=== PATIENT | male | born 1990 | race Caucasian/White ===

== ENCOUNTER 2017-06-24 11:55 | Inpatient (IN) | payer OTHER ==
[2017-06-24 12:30] VITALS: BMI 29.0
--- NOTE | 2017-06-24 14:03 | HP ---
COWS - Scale Resting Pulse: 0= [place] 80 or Below Sweatin=Flushed/Facial Moisture Restless Observation: 3= Extraneous Movement Pupil Size: 1= Pupils >than Normal Bone or Joint Aches: 2= Severe Diffuse Aches Runny Nose/ Eye Tearin= Runny Nose/Eyes GI Upset > 30mins: 3= Vomiting/Diarrhea Tremor Observation: 2= Slight Tremor Visible Yawning Observation: 2= >3x During Session Anxiety or Irritability: 2=Irritable/Anxious Goose Flesh Skin: 0=Smooth Skin COWS Score: 19 CIWA Score - CIWA Score Nausea/Vomitin Muscle Tremors: 3 Anxiety: 3 Agitation: 3 Paroxysmal Sweats: 2 Orientation: 0-Oriented Tacttile Disturbances: 2-Mild Itch/Numbness/Burn Auditory Disturbances: 2-Mild Harshness/Frighten Visual Disturbances: 2-Mild Sensitivity Headache: 2-Mild CIWA-Ar Total Score: 22 Admission ROS BHS - HPI Chief Complaint: I NEED HELP TO STOP USING HEROIN,CACOAINE,XANAX,KLONOPIN Allergies/Adverse Reactions: Allergies Allergy/AdvReac Type Severity Reaction Status Date / Time No Known Allergies Allergy Verified 06/24/17 13:56 History of Present Illness: THIS 24 YEARS OLD MALE WITH HEROIN,COCAINE,KLONOPIN DEPENDENCE,SEEKING HELP FOR DETOX, LAST TREATMENT [facility] IN 04/10 NICOTINE DEPENDENCE BIPOLAR DISORDER WITH DEPRESSION ADHD LONGEST PERIOD OF SOBRIETY 4 MONTHS Exam Limitations: No Limitations - Ebola screening Have you traveled outside of the country in the last 21 days: No Have you had contact with anyone from an Ebola affected area: No Have you been sick,other than usual withdrawal symptoms: No Do you have a fever: No - Review of Systems Constitutional: Loss of Appetite, Malaise, Night Sweats, Changes in sleep, Weakness EENT: reports: Tearing, Nose Congestion Respiratory: reports: No Symptoms reported Cardiac: reports: Palpitations GI: reports: Diarrhea, Nausea, Poor Appetite, Vomiting, Abdominal cramping : reports: No Symptoms Reported Musculoskeletal: reports: Back Pain, Joint Pain, Joint Stiffness Integumentary: reports: Dryness Neuro: reports: Headache, Tremors Endocrine: reports: No Symptoms Reported Hematology: reports: No Symptoms Reported Psychiatric: reports: No Sypmtoms Reported, Judgement Intact, Orientated x3 ( BIPOLAR DISORDER AND ADHD), other Patient History - Patient Medical History Hx Anemia: No Hx Asthma: No Hx Chronic Obstructive Pulmonary Disease (COPD): No Hx Cancer: No Hx Cardiac Disorders: No Hx Congestive Heart Failure: No Hx Hypertension: No Hx Hypercholesterolemia: No Hx Pacemaker: No Hx Seizures: No Hx Dementia: No Hx Diabetes: No Hx Gastrointestinal Disorders: No Hx Liver Disease: No Hx Genitourinary Disorders: No Hx Sexually Transmitted Disorders: Yes (HISTORY OF GENITAL HERPES) Hx Renal Disease (ESRD): No Hx Thyroid Disease: No Hx Human Immunodeficiency Virus (HIV): No (LAST 06/10) Hx Hepatitis C: No Hx Depression: Yes Hx Suicide Attempt: No Hx Bipolar Disorder: Yes Hx Schizophrenia: No Other Medical History: BIPOLAR DISORDER,NO SUIDAL,NO HOMICIDAL - Patient Surgical History Past Surgical History: No - PPD History Previous Implant?: Yes Documented Results: Negative w/o proof Implanted On Prior [facility] Admission?: No PPD to be Administered?: Yes - Smoking Cessation Smoking history: Current every day smoker Have you smoked in the past 12 months: Yes Aproximately how many cigarettes per day: 20 Cigars Per Day: 0 Hx Chewing Tobacco Use: No Initiated information on smoking cessation: Yes 'Breaking Loose' booklet given: 06/24/17 - Substance & Tx. History Hx Alcohol Use: No Hx Substance Use: Yes Substance Use Type: Cocaine, Opiates, Tranquilizers Hx Substance Use Treatment: Yes (LAST [facility] 04/10) - Substances Abused Heroin Route: Inhalation Frequency: Daily Amount used: 10 bags Age of first use: 24 Date of Last Use: 06/24/17 Cocaine Route: Inhalation Frequency: 3-6 times per week Amount used: $150 Age of first use: 23 Date of Last Use: 06/21/17 Klonopin Route: Oral Frequency: Daily Amount used: 6-8 mg. Age of first use: 26 Date of Last Use: 06/24/17 Phenobarbital Route: Oral Frequency: Daily Amount used: 3 tabs. (30 mg.) Age of first use: 26 Date of Last Use: 06/24/17 Family Disease History - Family Disease History Family History: Denies Admission Physical Exam BHS - Vital Signs Vital Signs: Vital Signs - 24 hr 06/24/17 12:28 Temperature 98.8 F Pulse Rate 75 Respiratory 18 Rate Blood Pressure 115/60 - Physical General Appearance: Yes: Moderate Distress, Tremorous, Irritable, Sweating, Anxious HEENTM: Yes: Hearing grossly Normal, Normal ENT Inspection, DIO, Pharynx Normal Respiratory: Yes: Lungs Clear, Normal Breath Sounds, No Respiratory Distress Neck: Yes: Within Normal Limits Breast: Yes: Within Normal Limits Cardiology: Yes: Within Normal Limits, Regular Rhythm, Regular Rate, S1, S2 Abdominal: Yes: Within Normal Limits, Normal Bowel Sounds, Non Tender, Soft Genitourinary: Yes: Within Normal Limits Back: Yes: Muscle Spasm, Vertebral Tenderness Musculoskeletal: Yes: Within Normal Limits, full range of Motion, Back pain Extremities: Yes: Normal Inspection, Tremors Neurological: Yes: Within Normal Limits, engineer fishing vessel II-XII NML intact, Fully Oriented, Alert, Motor Strength 5/5 Integumentary: Yes: Dry Lymphatic: Yes: Within Normal Limits - Diagnostic (1) Opioid dependence with withdrawal Current Visit: Yes Status: Acute (2) Cocaine dependence Current Visit: Yes Status: Acute (3) Uncomplicated sedative, hypnotic or anxiolytic withdrawal Current Visit: Yes Status: Acute (4) ADHD Current Visit: Yes Status: Acute (5) Bipolar disorder Current Visit: Yes Status: Acute (6) Depression Current Visit: Yes Status: Acute (7) Nicotine dependence Current Visit: Yes Status: Acute (8) History of herpes genitalis Current Visit: Yes Status: Acute Cleared for Admission [facility] - Detox or Rehab [facility] Level of Care: Medically Managed Detox Regimen/Protocol: Methadone [facility] Breath Alcohol Content Breath Alcohol Content: 0 Urine Drug Screen - Results Drug Screen Negative: No Urine Drug Screen Results: OPI-Opiates, BAR-Barbiturates
[2017-06-24] MEDS ORDERED: MAGNESIUM CITRATE 300 ML BOTTLE PO PRN (14:19)
[2017-06-24] MEDS ORDERED: MENTHOL/PHENOL 1 EACH UD MM PRN (14:19)
[2017-06-24] MEDS ORDERED: ACETAMINOPHEN 325 MG TABLET (FP) PO PRN (14:19)
[2017-06-24] MEDS ORDERED: P-EPHED 60MG/TRIPROLIDI 2.5MG TABLET PO PRN (14:19)
[2017-06-24] MEDS ORDERED: IBUPROFEN 400 MG TABLET (FP) PO PRN (14:19)
[2017-06-24] MEDS ORDERED: guaiFENesin/D-METHORPHAN HB 10 ML UNIT-DOSE CUPS PO PRN (14:19)
[2017-06-24] MEDS ORDERED: MAG HYDROX/AL HYDROX/SIMETH 30 ML UNIT-DOSE CUP PO PRN (14:19)
[2017-06-24] MEDS ORDERED: NICOTINE 10 MG CARTRIDGE (INHALER) IH PRN (14:19)
[2017-06-24] MEDS ORDERED: MAGNESIUM HYDROX 2400MG/30ML ORAL SUSPENSION 30 ML CUP PO PRN (14:19)
[2017-06-24] MEDS ORDERED: diphenhydrAMINE HCL 50 MG CAPSULE PO PRN (14:19)
[2017-06-24] MEDS ORDERED: hydrOXYzine PAMOATE 50 MG CAPSULE (FP) PO PRN (14:19)
[2017-06-24] MEDS ORDERED: LOPERAMIDE HCL 2 MG CAPSULE PO PRN (14:19)
[2017-06-24] MEDS ORDERED: METHADONE HCL 10 MG TABLET (FOR DETOX USE ONLY) PO ONE ×2 (14:29→23:00)
--- NOTE | 2017-06-24 15:44 | HP ---
COWS - Scale Resting Pulse: 0= [place] 80 or Below Sweatin=Flushed/Facial Moisture Restless Observation: 3= Extraneous Movement Pupil Size: 1= Pupils >than Normal Bone or Joint Aches: 2= Severe Diffuse Aches Runny Nose/ Eye Tearin= Runny Nose/Eyes GI Upset > 30mins: 3= Vomiting/Diarrhea Tremor Observation: 2= Slight Tremor Visible Yawning Observation: 2= >3x During Session Anxiety or Irritability: 2=Irritable/Anxious Goose Flesh Skin: 0=Smooth Skin COWS Score: 19 CIWA Score - CIWA Score Nausea/Vomitin Muscle Tremors: 3 Anxiety: 3 Agitation: 3 Paroxysmal Sweats: 2 Orientation: 0-Oriented Tacttile Disturbances: 2-Mild Itch/Numbness/Burn Auditory Disturbances: 2-Mild Harshness/Frighten Visual Disturbances: 2-Mild Sensitivity Headache: 2-Mild CIWA-Ar Total Score: 22 Admission ROS BHS - HPI Chief Complaint: i need help to stop using heroin,xanax,alcohol Allergies/Adverse Reactions: Allergies Allergy/AdvReac Type Severity Reaction Status Date / Time No Known Allergies Allergy Verified 06/24/17 13:56 History of Present Illness: this 26 years old male with heroin,alcohol,klonopin dependence,seeking detox, - Ebola screening Have you traveled outside of the country in the last 21 days: No Have you had contact with anyone from an Ebola affected area: No Have you been sick,other than usual withdrawal symptoms: No Do you have a fever: No Patient History - Patient Medical History Hx Anemia: No Hx Asthma: No Hx Chronic Obstructive Pulmonary Disease (COPD): No Hx Cancer: No Hx Cardiac Disorders: No Hx Congestive Heart Failure: No Hx Hypertension: No Hx Hypercholesterolemia: No Hx Pacemaker: No Hx Seizures: No Hx Dementia: No Hx Diabetes: No Hx Gastrointestinal Disorders: No Hx Liver Disease: No Hx Genitourinary Disorders: No Hx Sexually Transmitted Disorders: Yes (HISTORY OF GENITAL HERPES) Hx Renal Disease (ESRD): No Hx Thyroid Disease: No Hx Human Immunodeficiency Virus (HIV): No (LAST 06/10) Hx Hepatitis C: No Hx Depression: Yes Hx Suicide Attempt: No Hx Bipolar Disorder: Yes Hx Schizophrenia: No Other Medical History: BIPOLAR DISORDER,NO SUIDAL,NO HOMICIDAL - Patient Surgical History Past Surgical History: No Hx Neurologic Surgery: No Hx Cataract Extraction: No Hx Cardiac Surgery: No Hx Lung Surgery: No Hx Breast Surgery: No Hx Breast Biopsy: No Hx Abdominal Surgery: No Hx Appendectomy: No Hx Cholecystectomy: No Hx Genitourinary Surgery: No Hx Section: No Hx Orthopedic Surgery: Yes Anesthesia Reaction: No - PPD History Previous Implant?: Yes Documented Results: Negative w/o proof Implanted On Prior [facility] Admission?: No - Smoking Cessation Smoking history: Current every day smoker Have you smoked in the past 12 months: Yes Aproximately how many cigarettes per day: 20 Cigars Per Day: 0 Hx Chewing Tobacco Use: No Initiated information on smoking cessation: Yes - Substances Abused Heroin Route: Inhalation Frequency: Daily Amount used: 10 bags Age of first use: 24 Date of Last Use: 06/24/17 Cocaine Route: Inhalation Frequency: 3-6 times per week Amount used: $150 Age of first use: 23 Date of Last Use: 06/21/17 Klonopin Route: Oral Frequency: Daily Amount used: 6-8 mg. Age of first use: 26 Date of Last Use: 06/24/17 Phenobarbital Route: Oral Frequency: Daily Amount used: 3 tabs. (30 mg.) Age of first use: 26 Date of Last Use: 06/24/17 Admission Physical Exam BHS - Vital Signs Vital Signs: Vital Signs - 24 hr 06/24/17 12:28 Temperature 98.8 F Pulse Rate 75 Respiratory 18 Rate Blood Pressure 115/60 - Diagnostic (1) Opioid dependence with withdrawal Current Visit: Yes Status: Acute (2) Cocaine dependence Current Visit: Yes Status: Acute (3) Uncomplicated sedative, hypnotic or anxiolytic withdrawal Current Visit: Yes Status: Acute (4) ADHD Current Visit: Yes Status: Acute (5) Bipolar disorder Current Visit: Yes Status: Acute (6) Depression Current Visit: Yes Status: Acute (7) Nicotine dependence Current Visit: Yes Status: Acute (8) History of herpes genitalis Current Visit: Yes Status: Acute BHS Breath Alcohol Content Breath Alcohol Content: 0 Urine Drug Screen - Results Drug Screen Negative: No Urine Drug Screen Results: OPI-Opiates, BAR-Barbiturates
[2017-06-24] MEDS ORDERED: METHADONE HCL 10 MG TABLET (FOR DETOX USE ONLY) ONE (16:45)
[2017-06-24] MEDS: diazePAM 5 MG TABLET PO PRN ×2 (16:48→22:21)
--- NOTE | 2017-06-24 16:53 | CONSULT ---
[facility] Psychiatric Consult - Data Date of interview: 06/24/17 Admission source: [facility] Identifying data: First admission to [facility] for this 26 y/o male seeking detox treatment on for heroin and cocaine dependence.Patient is ,a father of three,homeless,unemployed and supported on food stamps. Substance Abuse History: Discussed in detail with patient in this interview.Mr Iverson confirms the information contained in this section of [facility] report depicting his substance abuse profile : Smoking Cessation. Smoking history: Current every day smoker. Have you smoked in the past 12 months: Yes. Aproximately how many cigarettes per day: 20. Cigars Per Day: 0. Hx Chewing Tobacco Use: No. Initiated information on smoking cessation: Yes. 'Breaking Loose' booklet given: 06/24/17. - Substance & Tx. History. Hx Alcohol Use: No. Hx Substance Use: Yes. Substance Use Type: Cocaine, Opiates, Tranquilizers. Hx Substance Use Treatment: Yes (LAST [facility] - Substances Abused. Heroin. Route: Inhalation. Frequency: Daily. Amount used: 10 bags. Age of first use: 24. Date of Last Use: 06/24/17. Cocaine. Route: Inhalation. Frequency: 3-6 times per week. Amount used: $ 150. Age of first use: 23. Date of Last Use: 06/21/17. Klonopin. Route: Oral. Frequency: Daily. Amount used: 6-8 mg. Age of first use: 26. Date of Last Use: 06/24/17. Phenobarbital. Route: Oral. Frequency: Daily. Amount used: 3 tabs. (30 mg.). Age of first use: 26. Date of Last Use: 06/24/17 Medical History: History of herpes genitalis. Psychiatric History: Patient reports that he is diagnosed with ADHD.He indicates that he sees a private psychiatrist in [facility] for outpatient follow up.Prescribed adderall 10 mg po bid.No recall of date of last intake.Mr Iverson denies history of psychiatric hospitalizations.No history of suicide attempts. Physical/Sexual Abuse/Trauma History: Patient denies. Additional Comment: Urine Drug Screen Results: OPI-Opiates, BAR- Barbiturates.Noted. Mental Status Exam - Mental Status Exam Alert and Oriented to: Time, Place, Person Cognitive Function: Good Patient Appearance: Well Groomed Mood: Nervous, Anxious Affect: Mood Congruent Patient Behavior: Fatigued, Appropriate, Cooperative Speech Pattern: Clear Voice Loudness: Normal Thought Process: Goal Oriented Thought Disorder: Not Present Hallucinations: Denies Suicidal Ideation: Denies Homicidal Ideation: Denies Insight/Judgement: Poor Sleep: Poorly, Difficulty falling asleep Appetite: Good Muscle strength/Tone: Normal Gait/Station: Normal Psychiatric Findings - Problem List ([place] 1, 2,3) (1) Opioid dependence with withdrawal Current Visit: Yes Status: Acute (2) Cocaine dependence Current Visit: Yes Status: Acute (3) Uncomplicated sedative, hypnotic or anxiolytic withdrawal Current Visit: Yes Status: Acute (4) Nicotine dependence Current Visit: Yes Status: Acute (5) Substance induced mood disorder Current Visit: Yes Status: Acute (6) ADHD Current Visit: Yes Status: Chronic Comment: Self-report. (7) History of herpes genitalis Current Visit: No Status: Chronic (8) Insomnia Current Visit: Yes Status: Acute - Initial Treatment Plan Initial Treatment Plan: Psychoeducation.Detoxification in progress.Ambien 10 mg po hs prn.Patient is made aware of potential for parasomnias.He is in agreement with this careplan.Observation.Psychostimulant medication is placed on hold.Patient is instructed to contact his private psychiatrist for reactivation of ADHD medications.
[2017-06-24] MEDS: NICOTINE 21 MG/24 HOURS TOPICAL PATCH TD SCH (17:51)
[2017-06-24] MEDS: ZOLPIDEM TARTRATE 10 MG TABLET (PARK CARE ONLY) PO PRN (22:21)
[2017-06-24] MEDS: THIAMINE HCL 100 MG TABLET (FP) PO SCH (22:21)
[2017-06-24] MEDS: CYCLOBENZAPRINE HCL 10 MG TABLET (FP) PO PRN (22:21)
[2017-06-24] MEDS: cloNIDine HCL 0.1 MG TABLET PO SCH (22:23)
[2017-06-25] MEDS: diazePAM 5 MG TABLET PO PRN ×3 (05:55→22:11)
[2017-06-25] MEDS: CYCLOBENZAPRINE HCL 10 MG TABLET (FP) PO PRN (05:55)
[2017-06-25] MEDS ORDERED: METHADONE HCL 10 MG TABLET (FOR DETOX USE ONLY) PO ONE (10:00)
[2017-06-25] MEDS: cloNIDine HCL 0.1 MG TABLET PO SCH ×2 (10:11→22:11)
[2017-06-25] MEDS: NICOTINE 21 MG/24 HOURS TOPICAL PATCH TD SCH (10:11)
[2017-06-25] MEDS: PRENATAL VITAMINS W/ FOLIC ACID TABLET (FP) PO SCH (10:11)
[2017-06-25] MEDS: valACYclovir HCL 500 MG TABLET (FP) PO SCH (10:11)
--- NOTE | 2017-06-25 10:22 | PN ---
S CIWA - CIWA Score Nausea/Vomitin-No Nausea/No Vomiting Muscle Tremors: 4-Moderate,w/Arms Extend Anxiety: 4-Mod. Anxious/Guarded Agitation: 4-Moderately Restless Paroxysmal Sweats: 1-Minimal Palms Moist Orientation: 0-Oriented Tacttile Disturbances: 3-Moderate Itch/Numb/Burn Auditory Disturbances: 0-None Visual Disturbances: 0-None Headache: 0-None Present CIWA-Ar Total Score: 16 BHS COWS - Scale Resting Pulse: 0= [place] 80 or Below Sweatin= Chills/Flushing Restless Observation: 3= Extraneous Movement Pupil Size: 2= Moderately Dilated Bone or Joint Aches: 4=Acute Joint/Muscle Pain Runny Nose/ Eye Tearin= Nasal Congestion GI Upset > 30mins: 1= Stomach Cramp Tremor Observation of Outstretched Hands: 2= Slight Tremor Visible Yawning Observation: 1= 1-2x During Session Anxiety or Irritability: 2=Irritable/Anxious Goose Flesh Skin: 0=Smooth Skin COWS Score: 17 S Progress Note (SOAP) Subjective: ANXIETY,SWEATS,TREMORS. Objective: 06/25/17 10:34 Vital Signs Temperature 97.5 F L 06/25/17 10:05 Pulse Rate 62 06/25/17 10:05 Respiratory Rate 18 06/25/17 10:05 Blood Pressure 103/57 06/25/17 10:05 O2 Sat by Pulse Oximetry (%) LAB RESULTS PENDING Assessment: 06/25/17 10:35 WITHDRAWAL SX Plan: CONTINUE DETOX
[2017-06-25 10:31] LABS: MCH 29.5 pg (25.7-33.7); MCHC 33.6 g/dl (32.0-35.9); MEAN CELL VOLUME 87.9 fl (80-96); MEAN PLT VOLUME 8.5 fl (7.5-11.1); PLATELET COUNT 268 K/MM3 (134-434); RDW 13.7 % (11.9-15.9); WHITE BLOOD COUNT 8.2 K/mm3 (4.0-10.0)
[2017-06-25 12:14] LABS: ALK PHOS 81 U/L (45-117); ANION GAP 8 (8-16); BILIRUBIN,TOTAL 0.4 mg/dL (0.2-1.0); CALCIUM 9.4 mg/dL (8.5-10.1); CO2 30 mmol/L (21-32); CREATININE 1.1 mg/dL (0.7-1.3); GLUCOSE,RANDOM 99 mg/dL (74-106); SGOT/AST 26 U/L (15-37); SGPT/ALT 45 U/L (12-78)
--- NOTE | 2017-06-25 14:22 | EKG ---
Test Reason : Blood Pressure : / mmHG Vent. Rate : 075 BPM Atrial Rate : 075 BPM P-R Int : 146 ms QRS Dur : 102 ms QT Int : 368 ms P-R-T Axes : 038 050 045 degrees QTc Int : 410 ms NORMAL SINUS RHYTHM INCOMPLETE RIGHT BUNDLE BRANCH BLOCK BORDERLINE ECG NO PREVIOUS ECGS AVAILABLE REPEAT EKG IF CLINICALLY INDICATED Confirmed by UMER RAY MD ([id number]) on 06/25/2017 2:21:59 PM Referred By: Cipriano Shelton Confirmed By:UMER RAY MD
[2017-06-25 15:20] LABS: HIV 1 & 2 AB NEGATIVE; HIV 1 AGp24 NEGATIVE
[2017-06-25] MEDS: THIAMINE HCL 100 MG TABLET (FP) PO SCH (22:11)
[2017-06-25] MEDS: ZOLPIDEM TARTRATE 10 MG TABLET (PARK CARE ONLY) PO PRN (22:11)
[2017-06-26] MEDS: diazePAM 5 MG TABLET PO PRN ×3 (06:03→22:03)
[2017-06-26] MEDS: cloNIDine HCL 0.1 MG TABLET PO SCH ×2 (09:59→22:03)
[2017-06-26] MEDS: PRENATAL VITAMINS W/ FOLIC ACID TABLET (FP) PO SCH (09:59)
[2017-06-26] MEDS: valACYclovir HCL 500 MG TABLET (FP) PO SCH (09:59)
[2017-06-26] MEDS ORDERED: METHADONE HCL 5 MG TABLET (FOR DETOX USE ONLY) PO ONE (10:00)
[2017-06-26] MEDS: NICOTINE 21 MG/24 HOURS TOPICAL PATCH TD SCH (10:00)
--- NOTE | 2017-06-26 11:29 | PN ---
[facility] CIWA - CIWA Score Nausea/Vomitin-No Nausea/No Vomiting Muscle Tremors: 4-Moderate,w/Arms Extend Anxiety: 4-Mod. Anxious/Guarded Agitation: 4-Moderately Restless Paroxysmal Sweats: 1-Minimal Palms Moist Orientation: 0-Oriented Tacttile Disturbances: 3-Moderate Itch/Numb/Burn Auditory Disturbances: 0-None Visual Disturbances: 0-None Headache: 0-None Present CIWA-Ar Total Score: 16 BHS COWS - Scale Resting Pulse: 0= [place] 80 or Below Sweatin= Chills/Flushing Restless Observation: 3= Extraneous Movement Pupil Size: 2= Moderately Dilated Bone or Joint Aches: 4=Acute Joint/Muscle Pain Runny Nose/ Eye Tearin= Nasal Congestion GI Upset > 30mins: 2= Nausea/Diarrhea Tremor Observation of Outstretched Hands: 2= Slight Tremor Visible Yawning Observation: 2= >3x During Session Anxiety or Irritability: 2=Irritable/Anxious Goose Flesh Skin: 0=Smooth Skin COWS Score: 19 S Progress Note (SOAP) Subjective: ANXIETY,IRRITABILITY,DIARRHEA,TREMORS,CHILLS. Objective: 06/26/17 11:29 Vital Signs Temperature 97.0 F L 06/26/17 09:40 Pulse Rate 61 06/26/17 09:40 Respiratory Rate 18 06/26/17 09:40 Blood Pressure 103/64 06/26/17 09:40 O2 Sat by Pulse Oximetry (%) Laboratory Last Values WBC 8.2 K/mm3 (4.0-10.0) 06/25/17 06:00 RBC 4.48 M/mm3 (4.00-5.60) 06/25/17 06:00 Hgb 13.2 GM/dL (11.7-16.9) 06/25/17 06:00 Hct 39.4 % (35.4-49) 06/25/17 06:00 MCV 87.9 fl (80-96) 06/25/17 06:00 MCH 29.5 pg (25.7-33.7) 06/25/17 06:00 MCHC 33.6 g/dl (32.0-35.9) 06/25/17 06:00 RDW 13.7 % (11.9-15.9) 06/25/17 06:00 Plt Count 268 K/MM3 (134-434) 06/25/17 06:00 MPV 8.5 fl (7.5-11.1) 06/25/17 06:00 Sodium 140 mmol/L (136-145) 06/25/17 06:00 Potassium 4.2 mmol/L (3.5-5.1) 06/25/17 06:00 Chloride 102 mmol/L (98-107) 06/25/17 06:00 Carbon Dioxide 30 mmol/L (21-32) 06/25/17 06:00 Anion Gap 8 (8-16) 06/25/17 06:00 BUN 17 mg/dL (7-18) 06/25/17 06:00 Creatinine 1.1 mg/dL (0.7-1.3) 06/25/17 06:00 Creat Clearance w eGFR > 60 (>60) 06/25/17 06:00 Random Glucose 99 mg/dL (74-106) 06/25/17 06:00 Calcium 9.4 mg/dL (8.5-10.1) 06/25/17 06:00 Total Bilirubin 0.4 mg/dL (0.2-1.0) 06/25/17 06:00 AST 26 U/L (15-37) 06/25/17 06:00 ALT 45 U/L (12-78) 06/25/17 06:00 Alkaline Phosphatase 81 U/L (45-117) 06/25/17 06:00 Total Protein 7.0 g/dl (6.4-8.2) 06/25/17 06:00 Albumin 4.0 g/dl (3.4-5.0) 06/25/17 06:00 RPR Titer Nonreactive (NONREACTIVE) 06/25/17 06:00 Hepatitis C Antibody <0.1 s/co ratio (0.0-0.9) 06/24/17 06:00 HIV 1&2 Antibody Screen Negative 06/24/17 09:50 HIV P24 Antigen Negative 06/24/17 09:50 Assessment: 06/26/17 11:29 WITHDRAWAL SX Plan: CONTINUE DETOX IMODIUM PRN
[2017-06-26] MEDS: NICOTINE POLACRILEX 4 MG GUM BUC PRN (12:43)
[2017-06-26 14:48] LABS: URINE APPEARANCE CLEAR; URINE BILIRUBIN NEGATIVE (NEGATIVE); URINE BLOOD NEGATIVE (NEGATIVE); URINE COLOR STRAW; URINE GLUCOSE (UA) NEGATIVE (NEGATIVE); URINE KETONE NEGATIVE (NEGATIVE); URINE LEUK ESTERASE NEGATIVE (NEGATIVE); URINE NITRITE NEGATIVE (NEGATIVE); URINE PROTEIN NEGATIVE (NEGATIVE); URINE UROBILINOGEN NEGATIVE mg/dL (0.2-1.0)
[2017-06-26] MEDS: ZOLPIDEM TARTRATE 10 MG TABLET (PARK CARE ONLY) PO PRN (22:03)
[2017-06-26] MEDS: CYCLOBENZAPRINE HCL 10 MG TABLET (FP) PO PRN (22:03)
[2017-06-26] MEDS: THIAMINE HCL 100 MG TABLET (FP) PO SCH (22:03)
[2017-06-27] MEDS: diazePAM 5 MG TABLET PO PRN (05:40)
[2017-06-27] MEDS: CYCLOBENZAPRINE HCL 10 MG TABLET (FP) PO PRN (05:40)
[2017-06-27] MEDS ORDERED: METHADONE HCL 5 MG TABLET (FOR DETOX USE ONLY) PO ONE (10:00)
--- NOTE | 2017-06-27 10:02 | PN ---
BHS Progress Note (SOAP) Subjective: C/O SLIGHT TREMORS, ANXIETY. Objective: 06/27/17 10:01 Vital Signs Temperature 97.5 F L 06/27/17 09:23 Pulse Rate 78 06/27/17 09:23 Respiratory Rate 18 06/27/17 09:23 Blood Pressure 104/58 06/27/17 09:23 O2 Sat by Pulse Oximetry (%) Laboratory Last Values WBC 8.2 K/mm3 (4.0-10.0) 06/25/17 06:00 RBC 4.48 M/mm3 (4.00-5.60) 06/25/17 06:00 Hgb 13.2 GM/dL (11.7-16.9) 06/25/17 06:00 Hct 39.4 % (35.4-49) 06/25/17 06:00 MCV 87.9 fl (80-96) 06/25/17 06:00 MCH 29.5 pg (25.7-33.7) 06/25/17 06:00 MCHC 33.6 g/dl (32.0-35.9) 06/25/17 06:00 RDW 13.7 % (11.9-15.9) 06/25/17 06:00 Plt Count 268 K/MM3 (134-434) 06/25/17 06:00 MPV 8.5 fl (7.5-11.1) 06/25/17 06:00 Sodium 140 mmol/L (136-145) 06/25/17 06:00 Potassium 4.2 mmol/L (3.5-5.1) 06/25/17 06:00 Chloride 102 mmol/L (98-107) 06/25/17 06:00 Carbon Dioxide 30 mmol/L (21-32) 06/25/17 06:00 Anion Gap 8 (8-16) 06/25/17 06:00 BUN 17 mg/dL (7-18) 06/25/17 06:00 Creatinine 1.1 mg/dL (0.7-1.3) 06/25/17 06:00 Creat Clearance w eGFR > 60 (>60) 06/25/17 06:00 Random Glucose 99 mg/dL (74-106) 06/25/17 06:00 Calcium 9.4 mg/dL (8.5-10.1) 06/25/17 06:00 Total Bilirubin 0.4 mg/dL (0.2-1.0) 06/25/17 06:00 AST 26 U/L (15-37) 06/25/17 06:00 ALT 45 U/L (12-78) 06/25/17 06:00 Alkaline Phosphatase 81 U/L (45-117) 06/25/17 06:00 Total Protein 7.0 g/dl (6.4-8.2) 06/25/17 06:00 Albumin 4.0 g/dl (3.4-5.0) 06/25/17 06:00 Urine Color Straw 06/26/17 09:40 Urine Appearance Clear 06/26/17 09:40 Urine pH 7.0 (5.0-8.0) 06/26/17 09:40 Ur Specific [place] 1.015 (1.005-1.025) 06/26/17 09:40 Urine Protein Negative (NEGATIVE) 06/26/17 09:40 Urine Glucose (UA) Negative (NEGATIVE) 06/26/17 09:40 Urine Ketones Negative (NEGATIVE) 06/26/17 09:40 Urine Blood Negative (NEGATIVE) 06/26/17 09:40 Urine Nitrite Negative (NEGATIVE) 06/26/17 09:40 Urine Bilirubin Negative (NEGATIVE) 06/26/17 09:40 Urine Urobilinogen Negative mg/dL (0.2-1.0) 06/26/17 09:40 Ur Leukocyte Esterase Negative (NEGATIVE) 06/26/17 09:40 RPR Titer Nonreactive (NONREACTIVE) 06/25/17 06:00 Hepatitis C Antibody <0.1 s/co ratio (0.0-0.9) 06/24/17 06:00 HIV 1&2 Antibody Screen Negative 06/24/17 09:50 HIV P24 Antigen Negative 06/24/17 09:50 Assessment: 06/27/17 10:01 WITHDRAWAL SX Plan: CONTINUE DETOX
[2017-06-27] MEDS: cloNIDine HCL 0.1 MG TABLET PO SCH ×2 (10:05→22:12)
[2017-06-27] MEDS: PRENATAL VITAMINS W/ FOLIC ACID TABLET (FP) PO SCH (10:05)
[2017-06-27] MEDS: valACYclovir HCL 500 MG TABLET (FP) PO SCH (10:05)
[2017-06-27] MEDS: NICOTINE 21 MG/24 HOURS TOPICAL PATCH TD SCH (10:06)
[2017-06-27] MEDS: NICOTINE POLACRILEX 4 MG GUM BUC PRN (11:18)
[2017-06-27] MEDS: THIAMINE HCL 100 MG TABLET (FP) PO SCH (22:12)
[2017-06-27] MEDS: ZOLPIDEM TARTRATE 10 MG TABLET (PARK CARE ONLY) PO PRN (22:13)
[2017-06-28] MEDS: CYCLOBENZAPRINE HCL 10 MG TABLET (FP) PO PRN (05:50)
[2017-06-28] MEDS ORDERED: METHADONE HCL 10 MG TABLET (FOR DETOX USE ONLY) PO ONE (10:00)
[2017-06-28] MEDS: NICOTINE 21 MG/24 HOURS TOPICAL PATCH TD SCH (10:13)
[2017-06-28] MEDS: PRENATAL VITAMINS W/ FOLIC ACID TABLET (FP) PO SCH (10:13)
[2017-06-28] MEDS: valACYclovir HCL 500 MG TABLET (FP) PO SCH (10:13)
[2017-06-28] MEDS: cloNIDine HCL 0.1 MG TABLET PO SCH ×2 (10:13→22:06)
--- NOTE | 2017-06-28 11:41 | PN ---
BHS Progress Note (SOAP) Subjective: ANXIETY,SWEATS,FATIGUE. Objective: 06/28/17 11:41 Vital Signs Temperature 96.7 F L 06/28/17 10:02 Pulse Rate 85 06/28/17 10:02 Respiratory Rate 16 06/28/17 10:02 Blood Pressure 108/66 06/28/17 10:02 O2 Sat by Pulse Oximetry (%) Laboratory Last Values WBC 8.2 K/mm3 (4.0-10.0) 06/25/17 06:00 RBC 4.48 M/mm3 (4.00-5.60) 06/25/17 06:00 Hgb 13.2 GM/dL (11.7-16.9) 06/25/17 06:00 Hct 39.4 % (35.4-49) 06/25/17 06:00 MCV 87.9 fl (80-96) 06/25/17 06:00 MCH 29.5 pg (25.7-33.7) 06/25/17 06:00 MCHC 33.6 g/dl (32.0-35.9) 06/25/17 06:00 RDW 13.7 % (11.9-15.9) 06/25/17 06:00 Plt Count 268 K/MM3 (134-434) 06/25/17 06:00 MPV 8.5 fl (7.5-11.1) 06/25/17 06:00 Sodium 140 mmol/L (136-145) 06/25/17 06:00 Potassium 4.2 mmol/L (3.5-5.1) 06/25/17 06:00 Chloride 102 mmol/L (98-107) 06/25/17 06:00 Carbon Dioxide 30 mmol/L (21-32) 06/25/17 06:00 Anion Gap 8 (8-16) 06/25/17 06:00 BUN 17 mg/dL (7-18) 06/25/17 06:00 Creatinine 1.1 mg/dL (0.7-1.3) 06/25/17 06:00 Creat Clearance w eGFR > 60 (>60) 06/25/17 06:00 Random Glucose 99 mg/dL (74-106) 06/25/17 06:00 Calcium 9.4 mg/dL (8.5-10.1) 06/25/17 06:00 Total Bilirubin 0.4 mg/dL (0.2-1.0) 06/25/17 06:00 AST 26 U/L (15-37) 06/25/17 06:00 ALT 45 U/L (12-78) 06/25/17 06:00 Alkaline Phosphatase 81 U/L (45-117) 06/25/17 06:00 Total Protein 7.0 g/dl (6.4-8.2) 06/25/17 06:00 Albumin 4.0 g/dl (3.4-5.0) 06/25/17 06:00 Urine Color Straw 06/26/17 09:40 Urine Appearance Clear 06/26/17 09:40 Urine pH 7.0 (5.0-8.0) 06/26/17 09:40 Ur Specific [place] 1.015 (1.005-1.025) 06/26/17 09:40 Urine Protein Negative (NEGATIVE) 06/26/17 09:40 Urine Glucose (UA) Negative (NEGATIVE) 06/26/17 09:40 Urine Ketones Negative (NEGATIVE) 06/26/17 09:40 Urine Blood Negative (NEGATIVE) 06/26/17 09:40 Urine Nitrite Negative (NEGATIVE) 06/26/17 09:40 Urine Bilirubin Negative (NEGATIVE) 06/26/17 09:40 Urine Urobilinogen Negative mg/dL (0.2-1.0) 06/26/17 09:40 Ur Leukocyte Esterase Negative (NEGATIVE) 06/26/17 09:40 RPR Titer Nonreactive (NONREACTIVE) 06/25/17 06:00 Hepatitis C Antibody <0.1 s/co ratio (0.0-0.9) 06/24/17 06:00 HIV 1&2 Antibody Screen Negative 06/24/17 09:50 HIV P24 Antigen Negative 06/24/17 09:50 Assessment: 06/28/17 11:41 WITHDRAWAL SX Plan: CONTINUE DETOX
[2017-06-28] MEDS: THIAMINE HCL 100 MG TABLET (FP) PO SCH (22:06)
[2017-06-28] MEDS: ZOLPIDEM TARTRATE 10 MG TABLET (PARK CARE ONLY) PO PRN (22:06)
[2017-06-29] MEDS ORDERED: METHADONE HCL 5 MG TABLET (FOR DETOX USE ONLY) PO ONE (06:00)
[2017-06-29] MEDS: PRENATAL VITAMINS W/ FOLIC ACID TABLET (FP) PO SCH (10:16)
[2017-06-29] MEDS: valACYclovir HCL 500 MG TABLET (FP) PO SCH (10:16)
[2017-06-29] MEDS: cloNIDine HCL 0.1 MG TABLET PO SCH (10:16)
[2017-06-29] MEDS: NICOTINE 21 MG/24 HOURS TOPICAL PATCH TD SCH (10:17)
[2017-06-29 10:23] VITALS: BP 113/68; PULSE 91; TEMP 98.6
[2017-06-29] MEDS: NICOTINE POLACRILEX 4 MG GUM BUC PRN (11:08)
--- NOTE | 2017-06-30 14:05 | DS ---
[facility] Detox Discharge Summary Admission Date: 06/24/17 Discharge Date: 06/29/17 - History Present History: Cocaine Dependence, Opioid Dependence, Sedative Dependence Additional Comments: PATIENT GOING TO [facility]. PATIENT ADVISED TO FOLLOW-UP THERE FOR AFTERCARE PER DISCHARGE ARRANGEMENT. PATIENT DISCHARGED FROM UNIT IN STABLE MEDICAL CONDITION. Pertinent Past History: Insomnia, ADHD, Bipolar Disorder. - Physical Exam Results Vital Signs: Vital Signs Temperature 98.6 F 06/29/17 10:23 Pulse Rate 91 H 06/29/17 10:23 Respiratory Rate 18 06/29/17 10:23 Blood Pressure 113/68 06/29/17 10:23 O2 Sat by Pulse Oximetry (%) Pertinent Admission Physical Exam Findings: WITHDRAWAL SYMPTOMS. Laboratory Tests 06/24/17 06/24/17 06/25/17 06:00 09:50 06:00 WBC 8.2 RBC 4.48 Hgb 13.2 Hct 39.4 MCV 87.9 MCH 29.5 MCHC 33.6 RDW 13.7 Plt Count 268 MPV 8.5 Sodium Potassium Chloride Carbon Dioxide Anion Gap BUN Creatinine Creat Clearance w eGFR Random Glucose Calcium Total Bilirubin AST ALT Alkaline Phosphatase Total Protein Albumin Urine Color Urine Appearance Urine pH Ur Specific [place] Urine Protein Urine Glucose (UA) Urine Ketones Urine Blood Urine Nitrite Urine Bilirubin Urine Urobilinogen Ur Leukocyte Esterase RPR Titer Hepatitis C Antibody <0.1 HIV 1&2 Antibody Screen Negative HIV P24 Antigen Negative 06/25/17 06/25/17 06/26/17 06:00 06:00 09:40 WBC RBC Hgb Hct MCV MCH MCHC RDW Plt Count MPV Sodium 140 Potassium 4.2 Chloride 102 Carbon Dioxide 30 Anion Gap 8 BUN 17 Creatinine 1.1 Creat Clearance w eGFR > 60 Random Glucose 99 Calcium 9.4 Total Bilirubin 0.4 AST 26 ALT 45 Alkaline Phosphatase 81 Total Protein 7.0 Albumin 4.0 Urine Color Straw Urine Appearance Clear Urine pH 7.0 Ur Specific [place] 1.015 Urine Protein Negative Urine Glucose (UA) Negative Urine Ketones Negative Urine Blood Negative Urine Nitrite Negative Urine Bilirubin Negative Urine Urobilinogen Negative Ur Leukocyte Esterase Negative RPR Titer Nonreactive Hepatitis C Antibody HIV 1&2 Antibody Screen HIV P24 Antigen LABS NOTED. - Treatment Hospital Course: Detox Protocol Followed, Detoxed Safely, Responded well, Discharged Condition Good, Rehab Referral Accepted Patient has Accepted a Rehab Referral to: [facility]. - Medication Discharge Medications: Ambulatory Orders Valacyclovir HCl [Valtrex -] 500 mg PO DAILY 06/24/17 - Diagnosis (1) Insomnia Status: Acute Qualifiers: Insomnia type: unspecified Qualified Code(s): G47.00 - Insomnia, unspecified (2) Nicotine dependence Status: Chronic Qualifiers: Nicotine product type: cigarettes Substance use status: in withdrawal Qualified Code(s): F17.213 - Nicotine dependence, cigarettes, with withdrawal (3) Opioid dependence with withdrawal Status: Acute (4) Substance induced mood disorder Status: Acute (5) Uncomplicated sedative, hypnotic or anxiolytic withdrawal Status: Acute (6) ADHD Status: Chronic Qualifiers: Attention deficit-hyperactivity disorder type: unspecified Qualified Code(s): F90.9 - Attention-deficit hyperactivity disorder, unspecified type (7) History of herpes genitalis Status: Chronic (8) Bipolar disorder Status: Acute Qualifiers: Active/Remission status: remission status unspecified Qualified Code (s): F31.9 - Bipolar disorder, unspecified (9) Depression Status: Acute Qualifiers: Depression Type: unspecified Qualified Code(s): F32.9 - Major depressive disorder, single episode, unspecified (10) Cocaine dependence Status: Acute Qualifiers: Substance use status: uncomplicated Qualified Code(s): F14.20 - Cocaine dependence, uncomplicated - AMA Did Patient Leave Against Medical Advice: No
== END 2017-06-29 12:16 | disposition other institution (70) | DRG 773 ==
LOC: YASAS 11:55 → Y3N 14:17
PROVIDERS: ADMIT Internal Medicine; ATTEND Internal Medicine
PROC: HZ2ZZZZ Detoxification Services for Substance Abuse Treatment (ICD-10-PCS; principal; 2017-06-24)
DX: F11.23 Opioid dependence with withdrawal (principal); F13.230 Sedative, hypnotic or anxiolytic dependence with withdrawal, uncomplicated; F14.20 Cocaine dependence, uncomplicated; F17.213 Nicotine dependence, cigarettes, with withdrawal; F19.24 Other psychoactive substance dependence with psychoactive substance-induced mood disorder; F90.9 Attention-deficit hyperactivity disorder, unspecified type; F31.9 Bipolar disorder, unspecified; F32.9 Major depressive disorder, single episode, unspecified; G47.00 Insomnia, unspecified; Z87.438 Personal history of other diseases of male genital organs
CPT/HCPCS: 36415; 80053; 81003; 85027; 86593; 86803; 87389; 93005; 93010

== ENCOUNTER 2017-06-29 12:43 | Inpatient (IN) | payer OTHER ==
--- NOTE | 2017-06-29 13:53 | HP ---
[facility] Assess/Revision - Admission History Admitted to Rehab from: [facility] Date of Admission to Rehab: 06/29/17 - Vital signs Vital Signs: Vital Signs Period Temp Pulse Resp BP Sys/Figueroa Pulse Ox Last 24 Hr 98.7 F 104 18 113/63 - Findings Detox History & Physical reviewed: Yes Concur with findings: Yes Comments/Additional Findings: FOR REHAB PROTOCOL
[2017-06-29] MEDS ORDERED: MAGNESIUM HYDROX 2400MG/30ML ORAL SUSPENSION 30 ML CUP PO PRN (13:54)
[2017-06-29] MEDS ORDERED: guaiFENesin/D-METHORPHAN HB 10 ML UNIT-DOSE CUPS PO PRN (13:54)
[2017-06-29] MEDS ORDERED: MAG HYDROX/AL HYDROX/SIMETH 30 ML UNIT-DOSE CUP PO PRN (13:54)
[2017-06-29] MEDS ORDERED: LOPERAMIDE HCL 2 MG CAPSULE PO PRN (13:54)
[2017-06-29] MEDS ORDERED: hydrOXYzine PAMOATE 50 MG CAPSULE (FP) PO PRN (13:54)
[2017-06-29] MEDS ORDERED: P-EPHED 60MG/TRIPROLIDI 2.5MG TABLET PO PRN (13:54)
[2017-06-29] MEDS ORDERED: MAGNESIUM CITRATE 300 ML BOTTLE PO PRN (13:54)
[2017-06-29] MEDS ORDERED: MENTHOL/PHENOL 1 EACH UD MM PRN (13:54)
[2017-06-29] MEDS: THIAMINE HCL 100 MG TABLET (FP) PO SCH (21:52)
[2017-06-29] MEDS: diphenhydrAMINE HCL 50 MG CAPSULE PO PRN (21:52)
--- NOTE | 2017-06-30 09:44 | PN ---
BHS Progress Note Note: PATIENT IS ON [employer]BOX[employer] MAINTENANCE 8MGS/2MGS BID,ORDERED
[2017-06-30] MEDS: ACETAMINOPHEN 325 MG TABLET (FP) PO PRN (10:38)
[2017-06-30] MEDS: PRENATAL VITAMINS W/ FOLIC ACID TABLET (FP) PO SCH (10:38)
[2017-06-30] MEDS: valACYclovir HCL 500 MG TABLET (FP) PO SCH (10:38)
[2017-06-30] MEDS: BUPRENORPHINE/NALOXONE 8 MG/2 MG FILM PACKET SL SCH ×2 (10:39→21:33)
[2017-06-30] MEDS: NICOTINE 21 MG/24 HOURS TOPICAL PATCH TD SCH (10:39)
[2017-06-30] MEDS: IBUPROFEN 400 MG TABLET (FP) PO PRN (18:00)
[2017-06-30] MEDS: diphenhydrAMINE HCL 50 MG CAPSULE PO PRN (21:33)
[2017-06-30] MEDS: THIAMINE HCL 100 MG TABLET (FP) PO SCH (21:33)
[2017-07-01] MEDS: diphenhydrAMINE HCL 50 MG CAPSULE PO PRN (01:52)
[2017-07-01] MEDS: IBUPROFEN 400 MG TABLET (FP) PO PRN ×2 (08:19→15:12)
[2017-07-01] MEDS ORDERED: PNEUMOC 13-VAL CONJ-DIP CRM/PF 0.5 ML DISP.SYRIN IM ONE (10:00)
[2017-07-01] MEDS: valACYclovir HCL 500 MG TABLET (FP) PO SCH (10:27)
[2017-07-01] MEDS: PRENATAL VITAMINS W/ FOLIC ACID TABLET (FP) PO SCH (10:27)
[2017-07-01] MEDS: BUPRENORPHINE/NALOXONE 8 MG/2 MG FILM PACKET SL SCH ×2 (10:28→21:34)
[2017-07-01] MEDS: NICOTINE 21 MG/24 HOURS TOPICAL PATCH TD SCH (10:28)
[2017-07-01] MEDS: NICOTINE POLACRILEX 4 MG GUM BUC PRN ×2 (10:28→21:35)
[2017-07-01] MEDS: ACETAMINOPHEN 325 MG TABLET (FP) PO PRN (10:29)
[2017-07-01] MEDS ORDERED: PNEUMOCOCCAL 23 VACCINE 0.5 ML VIAL IM ONE (12:00)
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
[2017-07-01] MEDS: THIAMINE HCL 100 MG TABLET (FP) PO SCH (21:34)
[2017-07-01] MEDS: SUVOREXANT 10 MG TABLET PO SCH (21:34)
[2017-07-02] MEDS: NICOTINE POLACRILEX 4 MG GUM BUC PRN (10:29)
[2017-07-02] MEDS: IBUPROFEN 400 MG TABLET (FP) PO PRN (10:29)
[2017-07-02] MEDS: NICOTINE 21 MG/24 HOURS TOPICAL PATCH TD SCH (10:30)
[2017-07-02] MEDS: valACYclovir HCL 500 MG TABLET (FP) PO SCH (10:31)
[2017-07-02] MEDS: PRENATAL VITAMINS W/ FOLIC ACID TABLET (FP) PO SCH (10:31)
[2017-07-02] MEDS: BUPRENORPHINE/NALOXONE 8 MG/2 MG FILM PACKET SL SCH ×2 (10:31→21:36)
--- NOTE | 2017-07-02 11:50 | PN ---
S Progress Note Note: patient has migraine headache,imitrex 50 mgs po now close monitoring
[2017-07-02] MEDS: SUMAtriptan SUCCINATE 50 MG TABLET PO SCH (12:25)
[2017-07-02] MEDS: SUVOREXANT 10 MG TABLET PO SCH (21:36)
[2017-07-02] MEDS: THIAMINE HCL 100 MG TABLET (FP) PO SCH (21:36)
[2017-07-03 07:22] VITALS: BP 123/67; PULSE 67; TEMP 97.8
[2017-07-03] MEDS: NICOTINE 21 MG/24 HOURS TOPICAL PATCH TD SCH (09:56)
[2017-07-03] MEDS: valACYclovir HCL 500 MG TABLET (FP) PO SCH (09:56)
[2017-07-03] MEDS: PRENATAL VITAMINS W/ FOLIC ACID TABLET (FP) PO SCH (09:56)
[2017-07-03] MEDS: BUPRENORPHINE/NALOXONE 8 MG/2 MG FILM PACKET SL SCH (09:57)
[2017-07-03] MEDS: SUMAtriptan SUCCINATE 50 MG TABLET PO SCH (11:57)
[2017-07-03] MEDS: IBUPROFEN 400 MG TABLET (FP) PO PRN (12:01)
--- NOTE | 2017-07-03 12:52 | PN ---
S Progress Note Note: PATIENT COMPLAINED OF CHEST PAIN ALERT,NOR IN DISTRESS NO SOB HEART NORMAL HEART SOUND,S1S2,REGULAR LUNG CLEAR NO CALF TENDERNESS PAIN RELATED TO MOVEMENT TENDERNESS OVER THE LEFT COSTOCHONDRAL JUNCTION T97.9,P74,R20,BP 134/75 IMPRESSION CHEST PAIN COSTOCHONDRITIST TREATMENT MOTRIN 400 MGS PO Q 6 HRS PRN FOR PAIN CLOSE MONITORIN
--- NOTE | 2017-07-03 12:56 | PN ---
BHS Progress Note Note: ADDENDUM EKG NSR ,NO ACUTE CHANGE
--- NOTE | 2017-07-03 14:50 | EKG ---
Test Reason : Blood Pressure : / mmHG Vent. Rate : 079 BPM Atrial Rate : 079 BPM P-R Int : 150 ms QRS Dur : 104 ms QT Int : 370 ms P-R-T Axes : 043 062 036 degrees QTc Int : 424 ms NORMAL SINUS RHYTHM INCOMPLETE RIGHT BUNDLE BRANCH BLOCK BORDERLINE ECG WHEN COMPARED WITH ECG OF 24-JUN-2017 16:00, NO SIGNIFICANT CHANGE WAS FOUND Confirmed by JEROMY PIERRE MD ([id number]) on 07/03/2017 2:49:34 PM Referred By: Dimitrios GONZALES Confirmed By:JEROMY PIERRE MD
== END 2017-07-03 18:00 | disposition left against medical advice (07) | DRG 770 ==
LOC: YASAS 12:43 → Y5N 12:44
PROVIDERS: ADMIT Psychiatry & Neurology Psychiatry; ATTEND Psychiatry & Neurology Psychiatry
PROC: HZ42ZZZ Group Counseling for Substance Abuse Treatment, Cognitive-Behavioral (ICD-10-PCS; principal; 2017-06-29)
DX: F11.20 Opioid dependence, uncomplicated (principal); F13.20 Sedative, hypnotic or anxiolytic dependence, uncomplicated; F14.20 Cocaine dependence, uncomplicated; F19.24 Other psychoactive substance dependence with psychoactive substance-induced mood disorder; R07.9 Chest pain, unspecified; M94.0 Chondrocostal junction syndrome [Tietze]; G43.909 Migraine, unspecified, not intractable, without status migrainosus; Z87.438 Personal history of other diseases of male genital organs
CPT/HCPCS: 90732; 93005; 93010; G0009

== ENCOUNTER 2017-07-29 09:23 | Inpatient (IN) | payer OTHER ==
[2017-07-29 11:20] VITALS: BMI 32.3
--- NOTE | 2017-07-29 13:21 | HP ---
COWS - Scale Resting Pulse: 0= [place] 80 or Below Sweatin= Chills/Flushing Restless Observation: 1= Difficult to Sit Still Pupil Size: 1= Pupils >than Normal Bone or Joint Aches: 1= Mild Discomfort Runny Nose/ Eye Tearin= Nasal Congestion GI Upset > 30mins: 2= Nausea/Diarrhea Tremor Observation: 1= Tremor [place], Not Seen Yawning Observation: 1= 1-2x During Session Anxiety or Irritability: 2=Irritable/Anxious Goose Flesh Skin: 3=Piloerection COWS Score: 14 Admission ROS [facility] - [facility] Chief Complaint: requesting inpatient detoxification from [place] and cocaine after binge Allergies/Adverse Reactions: Allergies Allergy/AdvReac Type Severity Reaction Status Date / Time No Known Allergies Allergy Verified 07/29/17 11:50 History of Present Illness: 26 yo m w h/o opioid use disorder and cocaine dependence not in treatment, requesting inpatient detoxification with methadone, patient well known to rd [facility], denies recent alcohol or benzodiazepien depndence and does not need to be detoxified from these substances at this time PMHX nicotine dependence, genital herpes on valtrex, depression - no h/o of suicide attempts last used yesterday heroin, sniffing, cociane last used yesterday no idu, has not slept for seeral days. no h/o seiziures no h/o DTS or intubation reported. Exam Limitations: No Limitations - Ebola screening Have you traveled outside of the country in the last 21 days: No (N) Have you had contact with anyone from an Ebola affected area: No Have you been sick,other than usual withdrawal symptoms: No Do you have a fever: No - Review of Systems Constitutional: Chills, Diaphoresis, Weakness, Weight Stable EENT: reports: Nose Congestion Respiratory: reports: No Symptoms reported Cardiac: reports: No Symptoms Reported GI: reports: Nausea, Poor Appetite, Poor Fluid Intake, Indigestion, Abdominal cramping : reports: No Symptoms Reported Musculoskeletal: reports: Back Pain, Joint Pain, Muscle Pain, Muscle Weakness, Neck Pain (withdrawal body aches reported) Integumentary: reports: Flushing, Sweating Neuro: reports: Tremors Endocrine: reports: No Symptoms Reported Hematology: reports: No Symptoms Reported Psychiatric: reports: Judgement Intact, Orientated x3, Anxious, Depressed, other (falling asleep from being up several days on drug binge cocaine and heroin) Other Systems: Reviewed and Negative Patient History - Patient Medical History Hx Anemia: No Hx Asthma: No Hx Chronic Obstructive Pulmonary Disease (COPD): No Hx Cancer: No Hx Cardiac Disorders: No Hx Congestive Heart Failure: No Hx Hypertension: No Hx Hypercholesterolemia: No Hx Pacemaker: No HX Cerebrovascular Accident: No Hx Seizures: No Hx Dementia: No Hx Diabetes: No Hx Gastrointestinal Disorders: No Hx Liver Disease: No Hx Genitourinary Disorders: No Hx Sexually Transmitted Disorders: No Hx Renal Disease (ESRD): No Hx Thyroid Disease: No Hx Human Immunodeficiency Virus (HIV): No (LAST 06/10) Hx Hepatitis C: No Hx Depression: No Hx Suicide Attempt: No Hx Bipolar Disorder: Yes Hx Schizophrenia: No - Patient Surgical History Past Surgical History: No Hx Neurologic Surgery: No Hx Cataract Extraction: No Hx Cardiac Surgery: No Hx Lung Surgery: No Hx Breast Surgery: No Hx Breast Biopsy: No Hx Abdominal Surgery: No Hx Appendectomy: No Hx Cholecystectomy: No Hx Genitourinary Surgery: No Hx Section: No Hx Orthopedic Surgery: No Anesthesia Reaction: No - PPD History Previous Implant?: Yes Documented Results: Negative w/proof Implanted On Prior R Admission?: Yes Date: 06/26/17 Results: 0mm - Reproductive History Patient is a Female of Child Bearing Age (11 -55 yrs old): No Patient : No - Smoking Cessation Smoking history: Current every day smoker Have you smoked in the past 12 months: Yes Aproximately how many cigarettes per day: 3 Cigars Per Day: 0 Hx Chewing Tobacco Use: No Initiated information on smoking cessation: Yes 'Breaking Loose' booklet given: 07/29/17 - Substance & Tx. History Hx Alcohol Use: No Hx Substance Use: Yes Substance Use Type: Cocaine, Heroin, Prescribed, Tranquilizers Hx Substance Use Treatment: Yes ([facility] detox and rehab 1 month ago) - Substances Abused Heroin Route: Inhalation Frequency: Daily Amount used: 4 BAGS Age of first use: 23 Date of Last Use: 07/28/17 Cocaine Route: Inhalation Frequency: 3-6 times per week Amount used: $80 Age of first use: 23 Date of Last Use: 07/28/17 Family Disease History - Family Disease History Family History: Denies Admission Physical Exam BHS - Vital Signs Vital Signs: Vital Signs - 24 hr 07/29/17 11:17 Temperature 97.4 F L Pulse Rate 66 Respiratory 20 Rate Blood Pressure 110/61 - Physical General Appearance: Yes: Nourished, Appropriately Dressed, Disheveled, Mild Distress, Tremorous, Irritable, Sweating, Anxious HEENTM: Yes: Hearing grossly Normal, Normal ENT Inspection, Normocephalic, Pharynx Normal, Nasal Congestion, Rhinorrhea Respiratory: Yes: Within Normal Limits, Chest Non-Tender, Lungs Clear, Normal Breath Sounds, No Respiratory Distress, No Accessory Muscle Use Neck: Yes: Within Normal Limits, No masses,lesions,Nodules, Supple, Trachea in good position Breast: Yes: Breast Exam Deferred Cardiology: Yes: Within Normal Limits, Regular Rhythm, Regular Rate, S1, S2 Abdominal: Yes: Normal Bowel Sounds, Non Tender, Soft, Increased Bowel Sounds, Protuberent, Distended Genitourinary: Yes: Within Normal Limits Back: Yes: Normal Inspection, Muscle Spasm Extremities: Yes: Normal Inspection, Normal Range of Motion, Non-Tender, Tremors 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 intact, Fully Oriented, Motor Strength 5/5, Normal Response, Depressed Affect Integumentary: Yes: Normal Color, Warm, Moist Lymphatic: Yes: Within Normal Limits - Addiitonal Findings: withdrawal sx present - Diagnostic (1) Cocaine dependence Current Visit: Yes Status: Chronic Qualifiers: Substance use status: uncomplicated Qualified Code(s): F14.20 - Cocaine dependence, uncomplicated (2) Depression Current Visit: Yes Status: Suspected Qualifiers: Depression Type: unspecified Qualified Code(s): F32.9 - Major depressive disorder, single episode, unspecified (3) Insomnia Current Visit: Yes Status: Acute Qualifiers: Insomnia type: unspecified Qualified Code(s): G47.00 - Insomnia, unspecified (4) Opioid dependence with withdrawal Current Visit: Yes Status: Chronic (5) Substance induced mood disorder Current Visit: Yes Status: Acute (6) ADHD Current Visit: Yes Status: Chronic Qualifiers: Attention deficit-hyperactivity disorder type: unspecified Qualified Code(s): F90.9 - Attention-deficit hyperactivity disorder, unspecified type Comment: Self-report. (7) History of herpes genitalis Current Visit: Yes Status: Chronic (8) Nicotine dependence Current Visit: Yes Status: Chronic Qualifiers: Nicotine product type: cigarettes Substance use status: in withdrawal Qualified Code(s): F17.213 - Nicotine dependence, cigarettes, with withdrawal Cleared for Admission [facility] - Detox or Rehab [facility] Level of Care: Medically Managed Detox Regimen/Protocol: Librium [facility] Breath Alcohol Content Breath Alcohol Content: 0 Urine Drug Screen - Results Drug Screen Negative: No Urine Drug Screen Results: MARGARITA-Cocaine, OPI-Opiates, BAR-Barbiturates, BZO- Benzodiazepines
[2017-07-29] MEDS ORDERED: guaiFENesin/D-METHORPHAN HB 10 ML UNIT-DOSE CUPS PO PRN (13:24)
[2017-07-29] MEDS ORDERED: ACETAMINOPHEN 325 MG TABLET (FP) PO PRN (13:24)
[2017-07-29] MEDS ORDERED: MENTHOL/PHENOL 1 EACH UD MM PRN (13:24)
[2017-07-29] MEDS ORDERED: NICOTINE POLACRILEX 2 MG GUM BUC PRN (13:24)
[2017-07-29] MEDS ORDERED: MAG HYDROX/AL HYDROX/SIMETH 30 ML UNIT-DOSE CUP PO PRN (13:24)
[2017-07-29] MEDS ORDERED: P-EPHED 60MG/TRIPROLIDI 2.5MG TABLET PO PRN (13:24)
[2017-07-29] MEDS ORDERED: MAGNESIUM HYDROX 2400MG/30ML ORAL SUSPENSION 30 ML CUP PO PRN (13:24)
[2017-07-29] MEDS ORDERED: LOPERAMIDE HCL 2 MG CAPSULE PO PRN (13:24)
[2017-07-29] MEDS ORDERED: MAGNESIUM CITRATE 300 ML BOTTLE PO PRN (13:24)
[2017-07-29] MEDS ORDERED: METHADONE HCL 10 MG TABLET (FOR DETOX USE ONLY) PO ONE ×2 (14:00→23:00)
[2017-07-29] MEDS: valACYclovir HCL 500 MG TABLET (FP) PO SCH (14:55)
[2017-07-29] MEDS: diazePAM 5 MG TABLET PO PRN ×2 (14:56→22:01)
[2017-07-29] MEDS: NICOTINE 14 MG/24 HOURS TOPICAL PATCH TD SCH (14:56)
[2017-07-29 18:40] LABS: URINE APPEARANCE CLEAR; URINE BILIRUBIN NEGATIVE (NEGATIVE); URINE BLOOD 1+ (NEGATIVE); URINE COLOR LTYELLOW; URINE GLUCOSE (UA) NEGATIVE (NEGATIVE); URINE KETONE NEGATIVE (NEGATIVE); URINE LEUK ESTERASE NEGATIVE (NEGATIVE); URINE NITRITE NEGATIVE (NEGATIVE); URINE PROTEIN NEGATIVE (NEGATIVE); URINE UROBILINOGEN NEGATIVE mg/dL (0.2-1.0)
[2017-07-29 18:46] LABS: URINE MUCUS RARE; URINE RBC 1 /hpf (0-3)
[2017-07-29] MEDS: THIAMINE HCL 100 MG TABLET (FP) PO SCH (22:01)
[2017-07-29] MEDS: diphenhydrAMINE HCL 50 MG CAPSULE PO PRN (22:02)
[2017-07-30] MEDS: diazePAM 5 MG TABLET PO PRN ×2 (05:50→22:09)
[2017-07-30] MEDS ORDERED: METHADONE HCL 10 MG TABLET (FOR DETOX USE ONLY) PO ONE (10:00)
[2017-07-30] MEDS: NICOTINE 14 MG/24 HOURS TOPICAL PATCH TD SCH (10:09)
[2017-07-30] MEDS: PRENATAL VITAMINS W/ FOLIC ACID TABLET (FP) PO SCH (10:09)
[2017-07-30] MEDS: valACYclovir HCL 500 MG TABLET (FP) PO SCH (10:09)
[2017-07-30 10:13] LABS: MCH 29.1 pg (25.7-33.7); MCHC 32.7 g/dl (32.0-35.9); MEAN CELL VOLUME 89.2 fl (80-96); PLATELET COUNT 247 K/MM3 (134-434); RDW 13.3 % (11.9-15.9); WHITE BLOOD COUNT 9.1 K/mm3 (4.0-10.0)
--- NOTE | 2017-07-30 10:36 | PN ---
BHS COWS - Scale Resting Pulse: 0= [place] 80 or Below Sweatin= Chills/Flushing Restless Observation: 3= Extraneous Movement Pupil Size: 2= Moderately Dilated Bone or Joint Aches: 4=Acute Joint/Muscle Pain Runny Nose/ Eye Tearin= Nasal Congestion GI Upset > 30mins: 1= Stomach Cramp Tremor Observation of Outstretched Hands: 2= Slight Tremor Visible Yawning Observation: 2= >3x During Session Anxiety or Irritability: 2=Irritable/Anxious Goose Flesh Skin: 0=Smooth Skin COWS Score: 18 BHS Progress Note (SOAP) Subjective: ANXIETY,SWEATS, FATIGUE. Objective: 07/30/17 10:35 Vital Signs Temperature 97.2 F L 07/30/17 08:56 Pulse Rate 70 07/30/17 08:56 Respiratory Rate 18 07/30/17 08:56 Blood Pressure 114/64 07/30/17 08:56 O2 Sat by Pulse Oximetry (%) Laboratory Last Values WBC 9.1 K/mm3 (4.0-10.0) 07/30/17 07:00 RBC 4.52 M/mm3 (4.00-5.60) 07/30/17 07:00 Hgb 13.2 GM/dL (11.7-16.9) 07/30/17 07:00 Hct 40.3 % (35.4-49) 07/30/17 07:00 MCV 89.2 fl (80-96) 07/30/17 07:00 MCH 29.1 pg (25.7-33.7) 07/30/17 07:00 MCHC 32.7 g/dl (32.0-35.9) 07/30/17 07:00 RDW 13.3 % (11.9-15.9) 07/30/17 07:00 Plt Count 247 K/MM3 (134-434) 07/30/17 07:00 MPV 8.0 fl (7.5-11.1) 07/30/17 07:00 Urine Color Ltyellow 07/29/17 15:57 Urine Appearance Clear 07/29/17 15:57 Urine pH 6.0 (5.0-8.0) 07/29/17 15:57 Ur Specific [place] 1.020 (1.005-1.025) 07/29/17 15:57 Urine Protein Negative (NEGATIVE) 07/29/17 15:57 Urine Glucose (UA) Negative (NEGATIVE) 07/29/17 15:57 Urine Ketones Negative (NEGATIVE) 07/29/17 15:57 Urine Blood 1+ (NEGATIVE) H 07/29/17 15:57 Urine Nitrite Negative (NEGATIVE) 07/29/17 15:57 Urine Bilirubin Negative (NEGATIVE) 07/29/17 15:57 Urine Urobilinogen Negative mg/dL (0.2-1.0) 07/29/17 15:57 Ur Leukocyte Esterase Negative (NEGATIVE) 07/29/17 15:57 Urine RBC 1 /hpf (0-3) 07/29/17 15:57 Urine WBC None /hpf (3-5) 07/29/17 15:57 Urine Mucus Rare 07/29/17 15:57 RPR Titer Nonreactive (NONREACTIVE) 07/30/17 07:00 Assessment: 07/30/17 10:36 WITHDRAWAL SX Plan: CONTINUE DETOX
[2017-07-30 11:00] LABS: ALBUMIN 3.3 g/dl (3.4-5.0); ANION GAP 5 (8-16); CALCIUM 8.9 mg/dL (8.5-10.1); CO2 34 mmol/L (21-32); GLUCOSE,RANDOM 96 mg/dL (74-106); SGPT/ALT 29 U/L (12-78)
[2017-07-30 11:03] LABS: ALK PHOS 60 U/L (45-117); BILIRUBIN,TOTAL 0.2 mg/dL (0.2-1.0); CREATININE 1.1 mg/dL (0.7-1.3); SGOT/AST 18 U/L (15-37)
--- NOTE | 2017-07-30 11:10 | CONSULT ---
[facility] Psychiatric Consult - Data Date of interview: 07/30/17 Admission source: [facility] Identifying data: Readmission to [facility] for this 26 y/o male seeking detox treatment on for heroin and cocaine dependence.Patient is ,a father of three,domiciled,unemployed and supported on food stamps. Substance Abuse History: Confirmed by patient in this interview. Smoking Cessation. Smoking history: Current every day smoker. Have you smoked in the past 12 months: Yes. Aproximately how many cigarettes per day: 3. Cigars Per Day: 0. Hx Chewing Tobacco Use: No. Initiated information on smoking cessation : Yes. 'Breaking Loose' booklet given: 07/29/17. - Substance & Tx. History. Hx Alcohol Use: No. Hx Substance Use: Yes. Substance Use Type: Cocaine, Heroin , Prescribed, Tranquilizers. Hx Substance Use Treatment: Yes ([facility] detox and rehab 1 month ago). - Substances Abused. Heroin. Route: Inhalation. Frequency: Daily. Amount used: 4 BAGS. Age of first use: 23. Date of Last Use : 07/28/17. Cocaine. Route: Inhalation. Frequency: 3-6 times per week. Amount used: $80. Age of first use: 23. Date of Last Use: 07/28/17 Medical History: Herpes genitalis. Psychiatric History: Patient is uncooperative and hostile.Denies history of psychiatric problems or medications.This contradicts previous encounters at [facility] indicative of diagnosis of ADHD,treatment with psychostimulants and OPD care by a private psychiatrist in [facility].No history of psychiatric hospitalizations.Mr Iverson denies suicide attempts. Physical/Sexual Abuse/Trauma History: Patient denies. Additional Comment: Urine Drug Screen Results: MARGARITA-Cocaine, OPI-Opiates, BAR- Barbiturates, BZO-Benzodiazepines.Noted. Mental Status Exam - Mental Status Exam Alert and Oriented to: Time, Place, Person Cognitive Function: Good Patient Appearance: Well Groomed Mood: Nervous, Withdrawn, Anxious, Irritable Affect: Mood Congruent Patient Behavior: Fatigued, Uncooperative, Guarded Speech Pattern: Clear Voice Loudness: Normal Thought Process: Goal Oriented Thought Disorder: Not Present Hallucinations: Denies Suicidal Ideation: Denies Homicidal Ideation: Denies Insight/Judgement: Poor Sleep: Well Appetite: Good Muscle strength/Tone: Normal Gait/Station: Normal Psychiatric Findings - Problem List ([place] 1, 2,3) (1) Opioid dependence with withdrawal Current Visit: Yes Status: Acute (2) Cocaine dependence Current Visit: Yes Status: Acute Qualifiers: Substance use status: uncomplicated Qualified Code(s): F14.20 - Cocaine dependence, uncomplicated (3) Nicotine dependence Current Visit: Yes Status: Acute Qualifiers: Nicotine product type: cigarettes Substance use status: in withdrawal Qualified Code(s): F17.213 - Nicotine dependence, cigarettes, with withdrawal (4) Substance induced mood disorder Current Visit: Yes Status: Acute (5) History of herpes genitalis Current Visit: Yes Status: Chronic - Initial Treatment Plan Initial Treatment Plan: Psychoeducation.Detoxification.Observation.
--- NOTE | 2017-07-30 18:33 | EKG ---
Test Reason : Blood Pressure : / mmHG Vent. Rate : 076 BPM Atrial Rate : 076 BPM P-R Int : 152 ms QRS Dur : 108 ms QT Int : 374 ms P-R-T Axes : 050 065 043 degrees QTc Int : 420 ms NORMAL SINUS RHYTHM INCOMPLETE RIGHT BUNDLE BRANCH BLOCK BORDERLINE ECG WHEN COMPARED WITH ECG OF 03-JUL-2017 11:15, NO SIGNIFICANT CHANGE WAS FOUND Confirmed by UMER RAY MD ([id number]) on 07/30/2017 6:32:47 PM Referred By: Confirmed By:UMER RAY MD
[2017-07-30] MEDS: THIAMINE HCL 100 MG TABLET (FP) PO SCH (22:09)
[2017-07-30] MEDS: diphenhydrAMINE HCL 50 MG CAPSULE PO PRN (22:10)
[2017-07-30] MEDS: IBUPROFEN 400 MG TABLET (FP) PO PRN (22:11)
[2017-07-31] MEDS: diazePAM 5 MG TABLET PO PRN ×2 (05:11→10:10)
--- NOTE | 2017-07-31 09:43 | PN ---
BHS COWS - Scale Resting Pulse: 0= [place] 80 or Below Sweatin= Chills/Flushing Restless Observation: 3= Extraneous Movement Pupil Size: 2= Moderately Dilated Bone or Joint Aches: 4=Acute Joint/Muscle Pain Runny Nose/ Eye Tearin= Nasal Congestion GI Upset > 30mins: 0= None Tremor Observation of Outstretched Hands: 1= Tremor [place], Not Seen Yawning Observation: 1= 1-2x During Session Anxiety or Irritability: 2=Irritable/Anxious Goose Flesh Skin: 0=Smooth Skin COWS Score: 15 BHS Progress Note (SOAP) Subjective: ANXIETY,SWEATS,FATIGUE. Objective: 07/31/17 09:43 Vital Signs Temperature 96.4 F L 07/31/17 09:19 Pulse Rate 67 07/31/17 09:19 Respiratory Rate 16 07/31/17 09:19 Blood Pressure 114/67 07/31/17 09:19 O2 Sat by Pulse Oximetry (%) Laboratory Last Values WBC 9.1 K/mm3 (4.0-10.0) 07/30/17 07:00 RBC 4.52 M/mm3 (4.00-5.60) 07/30/17 07:00 Hgb 13.2 GM/dL (11.7-16.9) 07/30/17 07:00 Hct 40.3 % (35.4-49) 07/30/17 07:00 MCV 89.2 fl (80-96) 07/30/17 07:00 MCH 29.1 pg (25.7-33.7) 07/30/17 07:00 MCHC 32.7 g/dl (32.0-35.9) 07/30/17 07:00 RDW 13.3 % (11.9-15.9) 07/30/17 07:00 Plt Count 247 K/MM3 (134-434) 07/30/17 07:00 MPV 8.0 fl (7.5-11.1) 07/30/17 07:00 Sodium 143 mmol/L (136-145) 07/30/17 07:00 Potassium 4.3 mmol/L (3.5-5.1) 07/30/17 07:00 Chloride 104 mmol/L (98-107) 07/30/17 07:00 Carbon Dioxide 34 mmol/L (21-32) H 07/30/17 07:00 Anion Gap 5 (8-16) L 07/30/17 07:00 BUN 13 mg/dL (7-18) D 07/30/17 07:00 Creatinine 1.1 mg/dL (0.7-1.3) 07/30/17 07:00 Creat Clearance w eGFR > 60 (>60) 07/30/17 07:00 Random Glucose 96 mg/dL (74-106) 07/30/17 07:00 Calcium 8.9 mg/dL (8.5-10.1) 07/30/17 07:00 Total Bilirubin 0.2 mg/dL (0.2-1.0) D 07/30/17 07:00 AST 18 U/L (15-37) D 07/30/17 07:00 ALT 29 U/L (12-78) D 07/30/17 07:00 Alkaline Phosphatase 60 U/L (45-117) D 07/30/17 07:00 Total Protein 6.0 g/dl (6.4-8.2) L 07/30/17 07:00 Albumin 3.3 g/dl (3.4-5.0) L 07/30/17 07:00 Urine Color Ltyellow 07/29/17 15:57 Urine Appearance Clear 07/29/17 15:57 Urine pH 6.0 (5.0-8.0) 07/29/17 15:57 Ur Specific [place] 1.020 (1.005-1.025) 07/29/17 15:57 Urine Protein Negative (NEGATIVE) 07/29/17 15:57 Urine Glucose (UA) Negative (NEGATIVE) 07/29/17 15:57 Urine Ketones Negative (NEGATIVE) 07/29/17 15:57 Urine Blood 1+ (NEGATIVE) H 07/29/17 15:57 Urine Nitrite Negative (NEGATIVE) 07/29/17 15:57 Urine Bilirubin Negative (NEGATIVE) 07/29/17 15:57 Urine Urobilinogen Negative mg/dL (0.2-1.0) 07/29/17 15:57 Ur Leukocyte Esterase Negative (NEGATIVE) 07/29/17 15:57 Urine RBC 1 /hpf (0-3) 07/29/17 15:57 Urine WBC None /hpf (3-5) 07/29/17 15:57 Urine Mucus Rare 07/29/17 15:57 RPR Titer Nonreactive (NONREACTIVE) 07/30/17 07:00 Assessment: 07/31/17 09:43 WITHDRAWAL SX Plan: CONTINUE DETOX
[2017-07-31] MEDS ORDERED: METHADONE HCL 5 MG TABLET (FOR DETOX USE ONLY) PO ONE (10:00)
[2017-07-31] MEDS: PRENATAL VITAMINS W/ FOLIC ACID TABLET (FP) PO SCH (10:08)
[2017-07-31] MEDS: valACYclovir HCL 500 MG TABLET (FP) PO SCH (10:08)
[2017-07-31] MEDS: NICOTINE 14 MG/24 HOURS TOPICAL PATCH TD SCH (10:09)
[2017-07-31] MEDS: THIAMINE HCL 100 MG TABLET (FP) PO SCH (22:05)
[2017-07-31] MEDS: diphenhydrAMINE HCL 50 MG CAPSULE PO PRN (22:06)
[2017-08-01] MEDS: diazePAM 5 MG TABLET PO PRN (08:22)
--- NOTE | 2017-08-01 09:49 | PN ---
[facility] Progress Note (SOAP) Subjective: DECREASED ANXIETY, SWEATS,IRRITABILITY. Objective: 08/01/17 09:48 Vital Signs Temperature 98.1 F 08/01/17 09:35 Pulse Rate 87 08/01/17 09:35 Respiratory Rate 18 08/01/17 09:35 Blood Pressure 114/70 08/01/17 09:35 O2 Sat by Pulse Oximetry (%) Laboratory Last Values WBC 9.1 K/mm3 (4.0-10.0) 07/30/17 07:00 RBC 4.52 M/mm3 (4.00-5.60) 07/30/17 07:00 Hgb 13.2 GM/dL (11.7-16.9) 07/30/17 07:00 Hct 40.3 % (35.4-49) 07/30/17 07:00 MCV 89.2 fl (80-96) 07/30/17 07:00 MCH 29.1 pg (25.7-33.7) 07/30/17 07:00 MCHC 32.7 g/dl (32.0-35.9) 07/30/17 07:00 RDW 13.3 % (11.9-15.9) 07/30/17 07:00 Plt Count 247 K/MM3 (134-434) 07/30/17 07:00 MPV 8.0 fl (7.5-11.1) 07/30/17 07:00 Sodium 143 mmol/L (136-145) 07/30/17 07:00 Potassium 4.3 mmol/L (3.5-5.1) 07/30/17 07:00 Chloride 104 mmol/L (98-107) 07/30/17 07:00 Carbon Dioxide 34 mmol/L (21-32) H 07/30/17 07:00 Anion Gap 5 (8-16) L 07/30/17 07:00 BUN 13 mg/dL (7-18) D 07/30/17 07:00 Creatinine 1.1 mg/dL (0.7-1.3) 07/30/17 07:00 Creat Clearance w eGFR > 60 (>60) 07/30/17 07:00 Random Glucose 96 mg/dL (74-106) 07/30/17 07:00 Calcium 8.9 mg/dL (8.5-10.1) 07/30/17 07:00 Total Bilirubin 0.2 mg/dL (0.2-1.0) D 07/30/17 07:00 AST 18 U/L (15-37) D 07/30/17 07:00 ALT 29 U/L (12-78) D 07/30/17 07:00 Alkaline Phosphatase 60 U/L (45-117) D 07/30/17 07:00 Total Protein 6.0 g/dl (6.4-8.2) L 07/30/17 07:00 Albumin 3.3 g/dl (3.4-5.0) L 07/30/17 07:00 Urine Color Ltyellow 07/29/17 15:57 Urine Appearance Clear 07/29/17 15:57 Urine pH 6.0 (5.0-8.0) 07/29/17 15:57 Ur Specific [place] 1.020 (1.005-1.025) 07/29/17 15:57 Urine Protein Negative (NEGATIVE) 07/29/17 15:57 Urine Glucose (UA) Negative (NEGATIVE) 07/29/17 15:57 Urine Ketones Negative (NEGATIVE) 07/29/17 15:57 Urine Blood 1+ (NEGATIVE) H 07/29/17 15:57 Urine Nitrite Negative (NEGATIVE) 07/29/17 15:57 Urine Bilirubin Negative (NEGATIVE) 07/29/17 15:57 Urine Urobilinogen Negative mg/dL (0.2-1.0) 07/29/17 15:57 Ur Leukocyte Esterase Negative (NEGATIVE) 07/29/17 15:57 Urine RBC 1 /hpf (0-3) 07/29/17 15:57 Urine WBC None /hpf (3-5) 07/29/17 15:57 Urine Mucus Rare 07/29/17 15:57 RPR Titer Nonreactive (NONREACTIVE) 07/30/17 07:00 Assessment: 08/01/17 09:49 WITHDRAWAL SX Plan: CONTINUE DETOX.
[2017-08-01] MEDS ORDERED: METHADONE HCL 5 MG TABLET (FOR DETOX USE ONLY) PO ONE (10:00)
[2017-08-01] MEDS: NICOTINE 14 MG/24 HOURS TOPICAL PATCH TD SCH (10:04)
[2017-08-01] MEDS: valACYclovir HCL 500 MG TABLET (FP) PO SCH (10:05)
[2017-08-01] MEDS: PRENATAL VITAMINS W/ FOLIC ACID TABLET (FP) PO SCH (10:05)
[2017-08-01] MEDS: IBUPROFEN 400 MG TABLET (FP) PO PRN (14:38)
[2017-08-01] MEDS: diphenhydrAMINE HCL 50 MG CAPSULE PO PRN (22:06)
[2017-08-01] MEDS: THIAMINE HCL 100 MG TABLET (FP) PO SCH (22:06)
[2017-08-02] MEDS ORDERED: METHADONE HCL 10 MG TABLET (FOR DETOX USE ONLY) PO ONE (10:00)
[2017-08-02] MEDS: PRENATAL VITAMINS W/ FOLIC ACID TABLET (FP) PO SCH (10:06)
[2017-08-02] MEDS: valACYclovir HCL 500 MG TABLET (FP) PO SCH (10:06)
[2017-08-02] MEDS: NICOTINE 14 MG/24 HOURS TOPICAL PATCH TD SCH (10:06)
[2017-08-02] MEDS: IBUPROFEN 400 MG TABLET (FP) PO PRN (10:07)
[2017-08-02 10:16] VITALS: BP 135/69; PULSE 81; TEMP 97.8
--- NOTE | 2017-08-02 12:10 | DS ---
[facility] Detox Discharge Summary Admission Date: 07/29/17 Discharge Date: 08/02/17 - History Present History: Cocaine Dependence, Opioid Dependence Additional Comments: ALERT O X 3. NAD. DETOXED WELL WITH NO COMPLICATIONS. PT REFERRED TO GO TO REHAB TODAY. Pertinent Past History: HX GENITAL HERPES - Physical Exam Results Vital Signs: Vital Signs Temperature 97.8 F 08/02/17 10:16 Pulse Rate 81 08/02/17 10:16 Respiratory Rate 20 08/02/17 10:16 Blood Pressure 135/69 08/02/17 10:16 O2 Sat by Pulse Oximetry (%) Pertinent Admission Physical Exam Findings: WITHDRAWAL SX Laboratory Last Values WBC 9.1 K/mm3 (4.0-10.0) 07/30/17 07:00 RBC 4.52 M/mm3 (4.00-5.60) 07/30/17 07:00 Hgb 13.2 GM/dL (11.7-16.9) 07/30/17 07:00 Hct 40.3 % (35.4-49) 07/30/17 07:00 MCV 89.2 fl (80-96) 07/30/17 07:00 MCH 29.1 pg (25.7-33.7) 07/30/17 07:00 MCHC 32.7 g/dl (32.0-35.9) 07/30/17 07:00 RDW 13.3 % (11.9-15.9) 07/30/17 07:00 Plt Count 247 K/MM3 (134-434) 07/30/17 07:00 MPV 8.0 fl (7.5-11.1) 07/30/17 07:00 Sodium 143 mmol/L (136-145) 07/30/17 07:00 Potassium 4.3 mmol/L (3.5-5.1) 07/30/17 07:00 Chloride 104 mmol/L (98-107) 07/30/17 07:00 Carbon Dioxide 34 mmol/L (21-32) H 07/30/17 07:00 Anion Gap 5 (8-16) L 07/30/17 07:00 BUN 13 mg/dL (7-18) D 07/30/17 07:00 Creatinine 1.1 mg/dL (0.7-1.3) 07/30/17 07:00 Creat Clearance w eGFR > 60 (>60) 07/30/17 07:00 Random Glucose 96 mg/dL (74-106) 07/30/17 07:00 Calcium 8.9 mg/dL (8.5-10.1) 07/30/17 07:00 Total Bilirubin 0.2 mg/dL (0.2-1.0) D 07/30/17 07:00 AST 18 U/L (15-37) D 07/30/17 07:00 ALT 29 U/L (12-78) D 07/30/17 07:00 Alkaline Phosphatase 60 U/L (45-117) D 07/30/17 07:00 Total Protein 6.0 g/dl (6.4-8.2) L 07/30/17 07:00 Albumin 3.3 g/dl (3.4-5.0) L 07/30/17 07:00 Urine Color Ltyellow 07/29/17 15:57 Urine Appearance Clear 07/29/17 15:57 Urine pH 6.0 (5.0-8.0) 07/29/17 15:57 Ur Specific [place] 1.020 (1.005-1.025) 07/29/17 15:57 Urine Protein Negative (NEGATIVE) 07/29/17 15:57 Urine Glucose (UA) Negative (NEGATIVE) 07/29/17 15:57 Urine Ketones Negative (NEGATIVE) 07/29/17 15:57 Urine Blood 1+ (NEGATIVE) H 07/29/17 15:57 Urine Nitrite Negative (NEGATIVE) 07/29/17 15:57 Urine Bilirubin Negative (NEGATIVE) 07/29/17 15:57 Urine Urobilinogen Negative mg/dL (0.2-1.0) 07/29/17 15:57 Ur Leukocyte Esterase Negative (NEGATIVE) 07/29/17 15:57 Urine RBC 1 /hpf (0-3) 07/29/17 15:57 Urine WBC None /hpf (3-5) 07/29/17 15:57 Urine Mucus Rare 07/29/17 15:57 RPR Titer Nonreactive (NONREACTIVE) 07/30/17 07:00 - Treatment Hospital Course: Detox Protocol Followed, Detoxed Safely, Responded well, Discharged Condition Good, Rehab Referral Accepted - Medication Discharge Medications: Ambulatory Orders Valacyclovir HCl [Valtrex -] 500 mg PO DAILY #30 tab 08/02/17 - Diagnosis (1) Nicotine dependence Status: Acute Qualifiers: Nicotine product type: cigarettes Substance use status: in withdrawal Qualified Code(s): F17.213 - Nicotine dependence, cigarettes, with withdrawal (2) Opioid dependence with withdrawal Status: Acute (3) Cocaine dependence Status: Acute Qualifiers: Substance use status: uncomplicated Qualified Code(s): F14.20 - Cocaine dependence, uncomplicated (4) History of herpes genitalis Status: Chronic - AMA Did Patient Leave Against Medical Advice: No
[2017-08-03] MEDS ORDERED: METHADONE HCL 5 MG TABLET (FOR DETOX USE ONLY) PO ONE (06:00)
== END 2017-08-02 12:44 | disposition home or self-care (01) | DRG 773 ==
LOC: YASAS 09:23 → Y3N 13:26
PROVIDERS: ADMIT Internal Medicine Addiction Medicine; ATTEND Internal Medicine Addiction Medicine
PROC: HZ2ZZZZ Detoxification Services for Substance Abuse Treatment (ICD-10-PCS; principal; 2017-07-29)
DX: F11.23 Opioid dependence with withdrawal (principal); F14.20 Cocaine dependence, uncomplicated; F17.213 Nicotine dependence, cigarettes, with withdrawal; F19.24 Other psychoactive substance dependence with psychoactive substance-induced mood disorder; F32.9 Major depressive disorder, single episode, unspecified; F90.9 Attention-deficit hyperactivity disorder, unspecified type; G47.00 Insomnia, unspecified; Z87.438 Personal history of other diseases of male genital organs
CPT/HCPCS: 36415; 80053; 81003; 81015; 85027; 86593; 93005; 93010